=== PATIENT | male | born 1985 | race Caucasian/White ===

== ENCOUNTER 2019-07-29 07:37 | Emergency (ER) | payer SELFPAY ==
--- NOTE | 2019-07-29 07:45 | EDM.PDOC ---
ED HPI GENERAL MEDICAL PROBLEM - General Chief Complaint: General Stated Complaint: MISSING FOR 6 DAYS MULTIPLE ISSUES Time Seen by Provider: 07/29/19 07:49 - History of Present Illness INITIAL COMMENTS - FREE TEXT/NARRATIVE: 34-year-old male presents the emergency room with not been able recall what happened over the last 6 days. According to the patient's sister the patient has been missing since Friday he was reported missing on Friday. The patient had been doing a lot of meth before he disappeared. Sister noted the patient was home this morning the patient recalls waking up in a field and walking home. He has some sores on his neck and wonders if something chewed on him. Patient really denies any pain but is worried that his chest is itching as is the front of his neck. The patient is unable to give any more history. The sister adds that prior to the patient going missing, he was hallucinating some. - Related Data Allergies Allergy/AdvReac Type Severity Reaction Status Date / Time No Known Allergies Allergy Verified 07/29/19 07:53 Home Meds: Home Meds . [No Known Home Meds] 07/29/19 [History] ED ROS GENERAL - Review of Systems Review Of Systems: See Below Constitutional: Denies: Fever, Chills HEENT: Reports: No Symptoms Respiratory: Reports: No Symptoms Cardiovascular: Reports: No Symptoms GI/Abdominal: Reports: No Symptoms : Reports: No Symptoms Musculoskeletal: Reports: No Symptoms Skin: Reports: No Symptoms Neurological: Reports: No Symptoms Psychiatric: Reports: Hallucinations (After doing lots of mouth before he went missing) Hematologic/Lymphatic: Reports: No Symptoms ED EXAM, GENERAL - Physical Exam Exam: See Below Exam Limited By: No Limitations General Appearance: Alert, No Apparent Distress, Other (The patient was asked to undress and just wear the hospital gown.) Eye Exam: Bilateral Eye: Normal Inspection, PERRL Ears: Normal External Exam, Normal Canal, Hearing Grossly Normal, Normal TMs Nose: Normal Inspection, Normal Mucosa, No Blood Throat/Mouth: Normal Lips, Normal Gums, Normal Oropharynx, Normal Voice, No Airway Compromise. No: Normal Teeth Head: Atraumatic, Normocephalic Neck: Other (Has significant ecchymosis especially in the right side of the neck developing he has some deep abrasions on the front of his neck and some excoriations as well he has to a lesser degree ecchymosis developing on the left side of his neck. He does not have any tenderness along the bony structures or spinous process no tenderness along the jaw. Over the lateral muscles) Respiratory/Chest: No Respiratory Distress, Lungs Clear, Normal Breath Sounds, Other (He has significant anterior ecchymosis from the nipple line on down into the upper abdomen) Cardiovascular: Regular Rate, Rhythm, No Edema, No Murmur GI/Abdominal: Normal Bowel Sounds, Soft, Non-Tender Back Exam: Normal Inspection. No: CVA Tenderness (L), CVA Tenderness (R) Extremities: Normal Inspection, No Pedal Edema Neurological: Alert, CN II-XII Intact Lymphatic: No Adenopathy Course - Vital Signs Last Recorded V/S: Last Vital Signs Temp 36.9 C 07/29/19 07:50 Pulse 98 07/29/19 07:50 Resp 16 07/29/19 07:50 BP 167/99 H 07/29/19 07:50 Pulse Ox 98 07/29/19 07:50 - Orders/Labs/Meds Orders: Active Orders 24 hr Category Date Time Status Vaccines to be Administered [RC] PER UNIT ROUTINE Care 07/29/19 09:33 Active MYOGLOBIN, URINE Stat Lab 07/29/19 08:09 Received Sodium Chloride 0.9% [Saline Flush] Med 07/29/19 08:21 Active 10 ml FLUSH ONETIME PRN Medication Orders Sodium Chloride (Saline Flush) 10 ml FLUSH ONETIME PRN PRN Reason: IV FLUSH Last Admin: 07/29/19 08:33 Dose: 10 ml Admin: 07/29/19 08:23 Dose: 10 ml Labs: Laboratory Tests 07/29/19 07/29/19 07/29/19 Range/Units 08:09 08:09 08:26 WBC 4.05 L (4.23-9.07) K/mm3 RBC 4.89 (4.63-6.08) M/mm3 Hgb 14.1 (13.7-17.5) gm/dl Hct 41.5 (40.1-51.0) % MCV 84.9 (79.0-92.2) fl MCH 28.8 (25.7-32.2) pg MCHC 34.0 (32.2-35.5) g/dl RDW Std Deviation 40.7 (35.1-43.9) fL Plt Count 286 (163-337) K/mm3 MPV 9.9 (9.4-12.3) fl Neut % (Auto) 74.1 H (34.0-67.9) % Lymph % (Auto) 13.8 L (21.8-53.1) % [place] % (Auto) 9.6 (5.3-12.2) % Eos % (Auto) 1.5 (0.8-7.0) Baso % (Auto) 0.5 (0.1-1.2) % Neut # (Auto) 3.00 (1.78-5.38) K/mm3 Lymph # (Auto) 0.56 L (1.32-3.57) K/mm3 [place] # (Auto) 0.39 (0.30-0.82) K/mm3 Eos # (Auto) 0.06 (0.04-0.54) K/mm3 Baso # (Auto) 0.02 (0.01-0.08) K/mm3 Manual Slide Review Normal smear PT (9.7-12.0) SECONDS INR Sodium (136-145) mEq/L Potassium (3.5-5.1) mEq/L Chloride (98-107) mEq/L Carbon Dioxide (21-32) mEq/L Anion Gap (5-15) BUN (7-18) mg/dL Creatinine (0.7-1.3) mg/dL Est Cr Clr Drug Dosing Estimated GFR (MDRD) (>60) mL/min BUN/Creatinine Ratio (14-18) Glucose (74-106) mg/dL Calcium (8.5-10.1) mg/dL Total Bilirubin (0.2-1.0) mg/dL AST (15-37) U/L ALT (16-63) U/L Alkaline Phosphatase (46-116) U/L Creatine Kinase (39-308) U/L Total Protein (6.4-8.2) g/dl Albumin (3.4-5.0) g/dl Globulin gm/dL Albumin/Globulin Ratio (1-2) Urine Color Light yellow (Yellow) Urine Appearance Clear (Clear) Urine pH 7.0 (5.0-8.0) Ur Specific [place] 1.015 (1.005-1.030) Urine Protein Negative (Negative) Urine Glucose (UA) Negative (Negative) Urine Ketones Negative (Negative) Urine Occult Blood Negative (Negative) Urine Nitrite Negative (Negative) Urine Bilirubin Negative (Negative) Urine Urobilinogen 0.2 (0.2-1.0) Ur Leukocyte Esterase Negative (Negative) Urine Opiates Screen Negative (JNSEUM=162) Ur Buprenorphine Scrn Negative (CUTOFF=10) Ur Oxycodone Screen Negative (UNI2PB=415) Urine Methadone Screen Negative (MTH1SC=585) Ur Propoxyphene Screen Negative (HSPPXF=953) Ur Barbiturates Screen Negative (SJDGIT=204) Ur Tricyclics Screen Negative (IJHDUU=874) Ur Phencyclidine Scrn Negative (CUTOFF=25) Ur Amphetamine Screen Negative (YTGJDN=930) U Methamphetamines Scrn Negative (GKQRLJ=531) U Benzodiazepines Scrn Negative (PNQICH=658) U Cocaine Metab Screen Negative (JBYFRO=651) U Marijuana (THC) Screen Negative (CUTOFF=50) Ethyl Alcohol (0.00) gm% 07/29/19 07/29/19 Range/Units 08:26 08:26 WBC (4.23-9.07) K/mm3 RBC (4.63-6.08) M/mm3 Hgb (13.7-17.5) gm/dl Hct (40.1-51.0) % MCV (79.0-92.2) fl MCH (25.7-32.2) pg MCHC (32.2-35.5) g/dl RDW Std Deviation (35.1-43.9) fL Plt Count (163-337) K/mm3 MPV (9.4-12.3) fl Neut % (Auto) (34.0-67.9) % Lymph % (Auto) (21.8-53.1) % [place] % (Auto) (5.3-12.2) % Eos % (Auto) (0.8-7.0) Baso % (Auto) (0.1-1.2) % Neut # (Auto) (1.78-5.38) K/mm3 Lymph # (Auto) (1.32-3.57) K/mm3 [place] # (Auto) (0.30-0.82) K/mm3 Eos # (Auto) (0.04-0.54) K/mm3 Baso # (Auto) (0.01-0.08) K/mm3 Manual Slide Review PT 10.1 (9.7-12.0) SECONDS INR 0.93 Sodium 140 (136-145) mEq/L Potassium 3.5 (3.5-5.1) mEq/L Chloride 104 (98-107) mEq/L Carbon Dioxide 25 (21-32) mEq/L Anion Gap 14.5 (5-15) BUN 14 (7-18) mg/dL Creatinine 1.2 (0.7-1.3) mg/dL Est Cr Clr Drug Dosing TNP Estimated GFR (MDRD) > 60 (>60) mL/min BUN/Creatinine Ratio 11.7 L (14-18) Glucose 120 H (74-106) mg/dL Calcium 9.0 (8.5-10.1) mg/dL Total Bilirubin 0.5 (0.2-1.0) mg/dL AST 60 H (15-37) U/L ALT 139 H (16-63) U/L Alkaline Phosphatase 73 (46-116) U/L Creatine Kinase 375 H (39-308) U/L Total Protein 7.0 (6.4-8.2) g/dl Albumin 3.6 (3.4-5.0) g/dl Globulin 3.4 gm/dL Albumin/Globulin Ratio 1.1 (1-2) Urine Color (Yellow) Urine Appearance (Clear) Urine pH (5.0-8.0) Ur Specific [place] (1.005-1.030) Urine Protein (Negative) Urine Glucose (UA) (Negative) Urine Ketones (Negative) Urine Occult Blood (Negative) Urine Nitrite (Negative) Urine Bilirubin (Negative) Urine Urobilinogen (0.2-1.0) Ur Leukocyte Esterase (Negative) Urine Opiates Screen (YTMCWC=145) Ur Buprenorphine Scrn (CUTOFF=10) Ur Oxycodone Screen (YZF4JN=153) Urine Methadone Screen (PRQ5CF=509) Ur Propoxyphene Screen (VGEHOV=784) Ur Barbiturates Screen (SWDKQT=488) Ur Tricyclics Screen (ZWFBJG=135) Ur Phencyclidine Scrn (CUTOFF=25) Ur Amphetamine Screen (QYYVLZ=795) U Methamphetamines Scrn (TKJVYE=560) U Benzodiazepines Scrn (CWMGDY=829) U Cocaine Metab Screen (BRYRCY=370) U Marijuana (THC) Screen (CUTOFF=50) Ethyl Alcohol 0.00 (0.00) gm% Meds: Medications Generic Name Dose Route Start Last Admin Trade Name Freq PRN Reason Stop Dose Admin Sodium Chloride 10 ml 07/29/19 08:21 07/29/19 08:33 Saline Flush FLUSH 10 ml ONETIME PRN Administration IV FLUSH Discontinued Medications Generic Name Dose Route Start Last Admin Trade Name Freq PRN Reason Stop Dose Admin Amoxicillin/Clavulanate Potassium 1 tab 07/29/19 09:32 07/29/19 09:37 Augmentin 875 Mg/125 Mg PO 07/29/19 09:33 1 tab ONETIME ONE Administration Diphtheria/Tetanus/Acell Pertussis 0.5 ml 07/29/19 09:32 07/29/19 09:37 Adacel IM 07/29/19 09:33 0.5 ml .ONCE ONE Administration Lactated Ringer's 1,000 mls @ 999 mls/hr 07/29/19 08:15 07/29/19 08:23 Ringers, Lactated IV 07/29/19 09:15 999 mls/hr .BOLUS ONE Administration Iopamidol 100 ml 07/29/19 08:21 07/29/19 08:33 Isovue-300 (61%) IVPUSH 07/29/19 08:22 100 ml ONETIME ONE Administration - Re-Assessments/Exams Free Text/Narrative Re-Assessment/Exam: 07/29/19 08:52 I do not believe we are getting the full story. If the patient woke up this morning when it was 10 degrees outside with a very heavy wind and light snow I believe he would at least been hypothermic upon arrival to the emergency department. The patient sustained some sort of trauma. 07/29/19 11:03 Labs are not suspicious he is not significantly dehydrated urine myoglobin is pending. CT of the head is unremarkable soft tissue neck shows a small amount of soft tissue air within the platysmas muscle in the lower right neck with some associated soft tissue swelling this is consistent with his exam and he does have a skin or had a skin intrusion site at that point. Chest x-ray was unremarkable. Did relay all this to the family offered an abdominal CT with his ecchymosis that runs into the upper abdomen and given he is not having any abdominal symptoms he would they would like to wait on this. Did discuss drug abuse with the patient and he says he has not used for quite some time and had a breakdown this time offered suggestions on drug counseling and the patient declined this. 07/29/19 11:08 And has a pending urine myoglobin I informed the patient and his sister that we would notify them if this was abnormally elevated. Departure - Departure Time of Disposition: 11:04 Disposition: Home, Self-Care 01 Clinical Impression: Laceration of neck, Contusion of neck, Chest wall contusion - Discharge Information Referrals: PCP,None [Primary Care Provider] - Forms: ED Department Discharge Additional Instructions: Return to the emergency room with any questions problems or worsening symptoms. Drink lots of fluids for the next few days. You should be voiding every hour while you are awake. If you notice your urine getting very dark in color return to the emergency room. Avoid drugs and alcohol this does not work well for you. Sepsis Event Note - Focused Exam Vital Signs: Vital Signs Temp Pulse Resp BP Pulse Ox 07/29/19 07:50 36.9 C 98 16 167/99 H 98 Date Exam was Performed: 07/29/19 Time Exam was Performed: 11:02 - My Orders Last 24 Hours: My Active Orders 07/29/19 08:09 MYOGLOBIN, URINE Stat 07/29/19 08:21 Sodium Chloride 0.9% [Saline Flush] 10 ml FLUSH ONETIME PRN 07/29/19 09:33 Vaccines to be Administered [RC] PER UNIT ROUTINE - Assessment/Plan Last 24 Hours: My Active Orders 07/29/19 08:09 MYOGLOBIN, URINE Stat 07/29/19 08:21 Sodium Chloride 0.9% [Saline Flush] 10 ml FLUSH ONETIME PRN 07/29/19 09:33 Vaccines to be Administered [RC] PER UNIT ROUTINE
[2019-07-29] MEDS ORDERED: Lactated Ringers 1,000 ML IV ONE (08:15)
[2019-07-29] MEDS ORDERED: Iopamidol 612 MG/ML 100 ML Bottle IVPUSH ONE (08:21)
[2019-07-29] MEDS: Sodium Chloride 0.9% 10 ML Syringe FLUSH PRN ×2 (08:23→08:33)
--- NOTE | 2019-07-29 08:58 | CT ---
CT neck Technique: Multiple axial sections were obtained through the neck. Intravenous contrast was utilized. Reconstructed coronal and sagittal images were reviewed. Findings: Minimal mucosal thickening is seen inferiorly within the right maxillary sinus believed to be incidental. No fluid is seen within the paranasal sinuses. Parotid salivary glands and submandibular salivary glands appear unremarkable. Small amount of air is noted within the platysmas muscle within the right lower neck in an area of soft tissue injury presumably due to puncture or laceration. Slight thickening of the adjacent platysma muscle is also noted. No additional abnormality is appreciated within the neck. No adenopathy is seen. No fluid collections of abscess. Parapharyngeal soft tissues are normal. Epiglottis is normal. No acute bony abnormality is seen on bone window settings. Impression: 1. Small amount of soft tissue air within the platysmas muscle within the right lower neck with soft tissue swelling within this muscle. Probable adjacent skin perforation or skin laceration is noted. 2. Minimal sinus findings believed to be incidental. 3. No additional abnormality is seen on CT study of the neck. Diagnostic code #3 Study was dictated in MDT
--- NOTE | 2019-07-29 08:58 | CR ---
Chest: PA and lateral views of the chest were obtained. Comparison: No prior chest imaging is available. Heart size and mediastinum are normal. Lungs show no acute parenchymal change. Bony structure showed no definite acute finding. Impression: 1. Nothing acute is appreciated on 2 view chest x-ray. Diagnostic code #1 Study was dictated in MDT
--- NOTE | 2019-07-29 08:58 | CT ---
Head CT Technique: Multiple axial sections through the brain were obtained. Intravenous contrast was not utilized. Comparison: No prior intracranial imaging is available. Findings: Ventricles along with basal cisterns and sulci over the convexities are within normal limits for the patient's age. No abnormal parenchymal densities are seen. No evidence of intracranial hemorrhage. No midline shift or mass effect is appreciated. Visualized paranasal sinuses and visualized mastoid sinuses showed nothing acute. No acute calvarial abnormality is appreciated. Impression: 1. Nothing acute is identified on noncontrast head CT exam. Diagnostic code #1 Study was dictated in MDT
[2019-07-29] MEDS ORDERED: Diphtheria,Pertussis(Acell),Tetanus Vaccine 0.5 ML Syringe IM ONE (09:32)
[2019-07-29] MEDS ORDERED: Amoxicillin/Clavulanate K 875-125 MG Tab PO ONE (09:32)
== END 2019-07-29 11:15 | disposition home or self-care (01) ==
LOC: JD.ED 07:37
DX: S11.91XA Laceration without foreign body of unspecified part of neck, initial encounter (principal); S20.219A Contusion of unspecified front wall of thorax, initial encounter; Z23 Encounter for immunization; X58.XXXA Exposure to other specified factors, initial encounter
CPT/HCPCS: 36415; 70450; 70491; 71046; 80053; 80306; 80307; 81003; 82550; 83874; 85025; 85610; 90471; 90715; 96360; 99285; A9270; J7120; Q9967; 99283